=== PATIENT | female | born 1975 | race Caucasian/White ===

== ENCOUNTER → 2016-09-23 | Outpatient (CLI) | payer OTHER ==
[2016-03-14 15:41] VITALS: BP 136/73
[~2016-09-23] MED LIST: AMLO10TA2 PO; ASPI1TAB30 PO; CYCL10TA2 PO; FAMO20TA5 PO; HYDR-2868 PO; IBUP-1060 PO; NORT10CA PO; OXYC1TAB7 PO; PHEN37.53 PO
--- NOTE | 2016-09-23 09:26 | RAD ---
Indication six-month follow-up. Targeted ultrasound of the left breast was performed. The examination was targeted to the 2:00 position 8 and 13 cm from the nipple. Note is made of a previous diagnostic mammogram and left breast ultrasound 02/07/2016. At the 2:00 position of the breast, 8 cm from the nipple is an unchanged mass having benign imaging characteristics. No abnormality is seen on today's examination 13 cm from the nipple. Follow-up mammography in February of this year advised. IMPRESSION: Unchanged mass at the 2:00 position of the left breast, 8 cm from the nipple, having benign imaging characteristics on ultrasound. Follow-up mammography suggested in February of this year,.
== END | disposition home or self-care (01) ==
LOC: KCIC US 08:48
PROVIDERS: ATTEND Family Medicine
DX: R92.8 Other abnormal and inconclusive findings on diagnostic imaging of breast (principal)
CPT/HCPCS: 76641

== ENCOUNTER 2016-11-24 12:13 | Emergency (ER) | payer OTHER ==
[~2016-11-24] VITALS: Ht 165.1 cm; Wt 120.2 kg
--- NOTE | 2016-11-24 13:23 | RAD ---
THORACIC SPINE 3V Clinical Indication: fell Thursday, pain upper thoracic Comparison: None. Findings: The normal thoracic kyphosis is maintained. No listhesis. Vertebral body heights are maintained. No acute fracture identified. Mild multilevel degenerative changes of the visualized spine. Cholecystectomy. IMPRESSION: No acute fracture or malalignment.
--- NOTE | 2016-11-24 13:53 | RAD ---
CT of the head without contrast, 11/24/2016: History: Fall, head trauma, headache Comparison is made to a study from 03/14/2016. The ventricles are within normal limits in size. There is no shift of the midline structures. There is no evidence of acute intracranial hemorrhage or mass effect. There is an unchanged lucency in the right frontal deep white matter compatible with an old infarct. No abnormal extra-axial fluid collection or mass is seen. IMPRESSION: No acute intracranial abnormality is detected. PQRS Compliance Statement: One or more of the following individualized dose reduction techniques were utilized for this examination: 1. Automated exposure control 2. Adjustment of the mA and/or kV according to patient size 3. Use of iterative reconstruction technique
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
[2016-11-24 14:41] VITALS: BP 112/54
== END 2016-11-24 14:41 | disposition home or self-care (01) ==
LOC: ER 12:13
DX: S09.90XA Unspecified injury of head, initial encounter (principal); S20.229A Contusion of unspecified back wall of thorax, initial encounter; I10 Essential (primary) hypertension; G35 Multiple sclerosis; Z90.49 Acquired absence of other specified parts of digestive tract; Z98.51 Tubal ligation status; Z88.5 Allergy status to narcotic agent; Z88.8 Allergy status to other drugs, medicaments and biological substances; W18.39XA Other fall on same level, initial encounter; Y93.89 Activity, other specified; Y92.009 Unspecified place in unspecified non-institutional (private) residence as the place of occurrence of the external cause; Y99.8 Other external cause status
CPT/HCPCS: 70450; 72072; 99284-25

== ENCOUNTER 2017-06-06 11:47 | Emergency (ER) | payer OTHER ==
[2017-06-06 12:51] LABS: ADD MAN DIFF? NO
[2017-06-06 12:52] LABS: BASO % 1 % (0-3); EOS # 0.1 x10^3/uL (0.0-0.7); EOS % 2 % (0-3); HEMATOCRIT 36.6 % (36.0-47.0); HEMOGLOBIN 12.4 g/dL (12.0-15.5); LYMPH # 2.1 x10^3/uL (1.0-4.8); LYMPH % 42 % (24-48); MEAN CORPUSCULAR HEMOGLOBIN 30 pg (25-35); MEAN CORPUSCULAR HGB CONC 34 g/dL (31-37); MEAN CORPUSCULAR VOLUME 90 fL (79-100); MONO # 0.4 x10^3/uL (0.0-1.1); MONO % 9 % (0-9); NEUT # 2.4 x10^3uL (1.8-7.7); NEUT % 47 % (31-73); PLATELET COUNT 234 x10^3/uL (140-400); RED BLOOD COUNT 4.06 x10^6/uL (3.50-5.40); RED CELL DISTRIBUTION WIDTH 13.7 % (11.5-14.5); WHITE BLOOD COUNT 5.1 x10^3/uL (4.0-11.0)
[2017-06-06 13:04] LABS: PROTHROMBIN TIME PATIENT 12.4 SEC (11.7-14.0)
[2017-06-06 13:05] LABS: ANION GAP 8 (6-14); BLOOD UREA NITROGEN 7 mg/dL (7-20); BUN/CREATININE RATIO 12 (6-20); CALCIUM 9.6 mg/dL (8.5-10.1); CARBON DIOXIDE 28 mmol/L (21-32); CHLORIDE 98 mmol/L (98-107); CREATININE 0.6 mg/dL (0.6-1.0); GFR 110.2; GLUCOSE 86 mg/dL (70-99); POTASSIUM 3.6 mmol/L (3.5-5.1); SODIUM 134 mmol/L (136-145)
[2017-06-06] MEDS: ASPIRIN CHEWABLE 81 MG TABLET. PO ×2 (13:06)
[2017-06-06 13:09] LABS: D-DIMER 0.52 ug/mlFEU (0.00-0.50)
[2017-06-06 13:11] LABS: TROPONINI < 0.017 ng/mL (0.000-0.055)
[2017-06-06 13:18] LABS: ALBUMIN 3.2 g/dL (3.4-5.0); ALBUMIN/GLOBULIN RATIO 0.7 (1.0-1.7); ALK PHOS 69 U/L (46-116); ALT (SGPT) 41 U/L (14-59); AST (SGOT) 21 U/L (15-37); MAGNESIUM 1.6 mg/dL (1.8-2.4); TOTAL BILIRUBIN 0.2 mg/dL (0.2-1.0); TOTAL PROTEIN 7.8 g/dL (6.4-8.2)
[2017-06-06 13:20] LABS: NT-PRO BNP 71 pg/mL (0-124)
[2017-06-06 13:20] LABS: CKMB MASS < 0.5 ng/mL (0.0-3.6); CREATINE KINASE 97 U/L (26-192)
== END 2017-06-06 14:15 | disposition home or self-care (01) ==
LOC: ER 11:47
DX: R07.89 Other chest pain (principal); R06.02 Shortness of breath; I10 Essential (primary) hypertension; G35 Multiple sclerosis; F17.210 Nicotine dependence, cigarettes, uncomplicated; E66.9 Obesity, unspecified; Z90.49 Acquired absence of other specified parts of digestive tract; Z79.899 Other long term (current) drug therapy; Z98.51 Tubal ligation status; Z91.041 Radiographic dye allergy status; Z88.5 Allergy status to narcotic agent; Z68.34 Body mass index [BMI] 34.0-34.9, adult
CPT/HCPCS: 36415; 71045; 80053; 82553; 83735; 83880; 84484; 85025; 85379; 85610; 93005; 99285-25

== ENCOUNTER 2018-03-12 00:20 | Emergency (ER) | payer OTHER ==
[~2018-03-12] VITALS: Ht 165.1 cm; Wt 98.0 kg
[~2018-03-12 00:20] MED LIST changes: -AMLO10TA2 PO; +AMLO10TA6 PO; -ASPI1TAB30 PO; +ASPI1TAB31 PO
[2018-03-12 00:30] VITALS: BP 149/80
[2018-03-12] MEDS ORDERED: METH4TAB2 PO (01:00)
[2018-03-12] MEDS ORDERED: DIAZ5TAB PO (01:00)
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
[2018-03-12] MEDS ORDERED: diazePAM 5 MG TABLET PO ONE (01:30)
[2018-03-12] MEDS ORDERED: predniSONE 20 MG TABLET PO ONE (01:30)
== END 2018-03-12 01:20 | disposition home or self-care (01) ==
LOC: ER 00:20
DX: S13.8XXA Sprain of joints and ligaments of other parts of neck, initial encounter (principal); M54.5 Low back pain; R51 Headache; F41.9 Anxiety disorder, unspecified; I10 Essential (primary) hypertension; F32.9 Major depressive disorder, single episode, unspecified; Z90.49 Acquired absence of other specified parts of digestive tract; Z98.890 Other specified postprocedural states; Z88.5 Allergy status to narcotic agent; Z91.041 Radiographic dye allergy status; V43.52XA Car driver injured in collision with other type car in traffic accident, initial encounter; Y93.89 Activity, other specified; Y92.410 Unspecified street and highway as the place of occurrence of the external cause; Y99.8 Other external cause status
CPT/HCPCS: 99283; J7512; 99284

== ENCOUNTER → 2018-03-19 | Outpatient (CLI) | payer OTHER ==
[2018-03-12 00:30] VITALS: BP 149/80
[~2018-03-19] MED LIST changes: +DIAZ5TAB PO; +METH4TAB2 PO
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
== END | disposition home or self-care (01) ==
LOC: KCIC 08:16
PROVIDERS: ATTEND Nurse Practitioner Family
DX: M17.11 Unilateral primary osteoarthritis, right knee (principal); M11.261 Other chondrocalcinosis, right knee; M76.891 Other specified enthesopathies of right lower limb, excluding foot; D16.21 Benign neoplasm of long bones of right lower limb; M77.31 Calcaneal spur, right foot; M54.5 Low back pain
CPT/HCPCS: 72050; 72100; 73562; 73630

== ENCOUNTER → 2018-04-09 | Outpatient (CLI) | payer OTHER ==
[2018-03-12 00:30] VITALS: BP 149/80
--- NOTE | 2018-04-10 09:04 | KCIC ---
Lumbar spine AP, lateral and oblique x-rays 5 views HISTORY: Sacroiliac joint dysfunction and low back pain. COMPARISON: Lumbar spine x-rays March 19, 2018. FINDINGS: 5 nonrib-bearing lumbar type vertebra. No pars interarticularis defect. Lumbar vertebral body height and alignment intact. Intervertebral disc space height preserved. No fracture evident. IMPRESSION: No acute osseous injury. Electronically signed by: Shine Cuadra MD (04/10/2018 9:00 AM) [facility]
== END | disposition home or self-care (01) ==
LOC: KCIC 09:26
PROVIDERS: ATTEND Family Medicine
DX: M53.3 Sacrococcygeal disorders, not elsewhere classified (principal)
CPT/HCPCS: 72110

== ENCOUNTER 2018-04-25 10:06 | Emergency (ER) | payer OTHER ==
[~2018-04-25] VITALS: Ht 167.6 cm; Wt 120.2 kg
[2018-04-25 10:19] VITALS: BP 147/93
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
[2018-04-25] MEDS ORDERED: DEXAMETHASONE SOD PHOS 20 MG/5 ML VIAL. PO ONE (10:45)
[2018-04-25] MEDS ORDERED: PRED50TA PO (10:57)
[2018-04-25] MEDS ORDERED: HYDR25SU18 RC (10:57)
[2018-04-25] MEDS ORDERED: ORPH100T PO (10:57)
== END 2018-04-25 11:02 | disposition home or self-care (01) ==
LOC: ER 10:06
DX: M54.42 Lumbago with sciatica, left side (principal); K64.8 Other hemorrhoids; Z90.49 Acquired absence of other specified parts of digestive tract; Z98.51 Tubal ligation status; V89.2XXA Person injured in unspecified motor-vehicle accident, traffic, initial encounter; Y93.89 Activity, other specified; Y92.89 Other specified places as the place of occurrence of the external cause; Y99.8 Other external cause status
CPT/HCPCS: 99283; J1100

== ENCOUNTER 2020-02-10 19:05 | Emergency (ER) | payer OTHER ==
[~2020-02-10] VITALS: Ht 165.1 cm; Wt 126.0 kg
[~2020-02-10 19:05] MED LIST changes: +AMLO-187 PO; -AMLO10TA6 PO; +HYDR25SU18 RC; +ORPH100T PO; +PRED50TA PO
[2020-02-10 19:41] LABS: BILIRUBIN,URINE NEGATIVE (NEG); CLARITY,URINE CLEAR; COLOR,URINE YELLOW; NITRITE,URINE NEGATIVE (NEG); PROTEIN,URINE NEGATIVE (NEG-TRACE)
[2020-02-10 19:46] LABS: BACTERIA,URINE MODERATE /HPF (0-FEW)
--- NOTE | 2020-02-10 19:47 | PHYS DOC ---
Past Medical History Past Medical History: Hypertension Additional Past Medical Histor: MS Past Surgical History: Cholecystectomy, Tubal ligation Smoking Status: Current Some Day Smoker Alcohol Use: None Drug Use: Marijuana General Adult EDM: Chief Complaint: ABNORMAL LABS HPI: HPI: Fanny Nixon is a 44-year-old female with past medical history of multiple sclerosis who presents to the emergency department after her neurologist informed her that she had elevated sodium (175) and another "lab value" that put her at risk for seizures. She had these labs drawn earlier today when she had her 6-week infusion of Tysabri (natalizumab), medication which she has been rec eiving for some time now. She also states that she recently completed a regimen of steroids that was higher than her past doses. She currently complains of weakness and a mild headache that is described as a pressure in her frontal region. She denies all other complaints including fever, chills, chest pain, shortness of breath, abdominal pain, nausea, vomiting, or bowel/urinary complaints. Her last menstrual period ended 2 days ago. Review of Systems: Review of Systems: Constitutional: Denies fever or chills Eyes: Denies redness or eye pain HENT: Denies nasal congestion or sore throat Respiratory: Denies cough or shortness of breath Cardiovascular: Denies chest pain or palpitations GI: Denies abdominal pain, nausea, or vomiting : Denies dysuria or hematuria Musculoskeletal: Denies back pain or joint pain Integument: Denies rash or skin lesions Neurologic: Denies focal weakness or sensory changes; reports chronic headache Complete systems were reviewed and found to be within normal limits, except as documented in this note. Allergies: Allergies: Allergies Coded Allergies Type Severity Reaction Last Updated Verified Gadolinium-Containing Contrast Medi Allergy Intermediate 03/08/16 Yes hydrocodone Allergy Intermediate Itching 03/08/16 Yes tramadol Allergy Intermediate Itching 03/08/16 Yes Physical Exam: PE: Constitutional: Well developed, well nourished, no acute distress, non-toxic appearance HENT: Normocephalic, atraumatic Eyes: PERRL, EOMI, conjunctiva normal, no discharge Neck: Normal range of motion, no tenderness, supple Cardiac: Regular rate rhythm, no murmur Lungs & Thorax: No respiratory distress, equal chest rise and fall, clear to auscultation bilaterally Abdomen: Soft, no tenderness Skin: Warm, dry, no erythema, no rash Back: No tenderness, no CVA tenderness Extremities: No tenderness, ROM intact, no edema Neurologic: Alert and oriented X 3, normal motor function, normal sensory function, no focal deficits noted, CN II through XII intact, no arm drift, normal finger-nose Psychologic: Affect normal, judgment normal Current Patient Data: Labs: Laboratory Tests Test 02/10/20 19:40 POC Urine HCG, Qualitative Hcg negative (Negative) Course & Med Decision Making: Course & Med Decision Making Patient presented with outside laboratory draw hypernatremia as presented above. Patient's physical exam is benign and she is without significant complaint at this time. Blood work was largely unremarkable, with normal sodium levels, slight hypokalemia, and slightly elevated white blood cells. Given her recent course of steroids, this is likely a benign finding. Hypokalemia addressed. Urinalysis appears with contamination. Will hold antibiotic therapy until UCX. Patient is discharged with reassurance that her initial lab finding of hyponatremia was likely laboratory error. She will be given instructions about raising her potassium levels utilizing bananas, avocados, or figs. Dragon Disclaimer: Dragon Disclaimer: This electronic medical record was generated, in whole or in part, using a voice recognition dictation system. Departure Departure Impression: Primary Impression: Feared condition not demonstrated Additional Impression: Hypokalemia Referrals: DYLAN POSEY MD (PCP) Patient Instructions: Hypokalemia, Potassium Content of Foods Additional Instructions: The abnormal sodium level you were sent to the Emergency Department for appears to be normal at this time. It is likely a laboratory error from the prior site. ARMAAN AGUIRA DO Feb 10, 2020 19:47
[2020-02-10 19:51] LABS: BASO # 0.1 x10^3/uL (0.0-0.2); BASO % 0 % (0-3); EOS % 0 % (0-3); HEMATOCRIT 30.8 % (36.0-47.0); LYMPH # 3.7 x10^3/uL (1.0-4.8); LYMPH % 23 % (24-48); MEAN CORPUSCULAR HEMOGLOBIN 26 pg (25-35); MEAN CORPUSCULAR HGB CONC 32 g/dL (31-37); MEAN CORPUSCULAR VOLUME 81 fL (79-100); MONO # 1.4 x10^3/uL (0.0-1.1); MONO % 9 % (0-9); NEUT # 11.1 x10^3/uL (1.8-7.7); NEUT % 68 % (31-73); PLATELET COUNT 321 x10^3/uL (140-400); RED BLOOD COUNT 3.79 x10^6/uL (3.50-5.40); RED CELL DISTRIBUTION WIDTH 17.4 % (11.5-14.5); WHITE BLOOD COUNT 16.3 x10^3/uL (4.0-11.0)
[2020-02-10 20:11] LABS: CALCIUM 9.1 mg/dL (8.5-10.1); GFR 60.5; POTASSIUM 3.1 mmol/L (3.5-5.1)
[2020-02-10 20:18] LABS: ALBUMIN 3.6 g/dL (3.4-5.0); MAGNESIUM 2.1 mg/dL (1.8-2.4); TOTAL BILIRUBIN 0.1 mg/dL (0.2-1.0); TOTAL PROTEIN 7.2 g/dL (6.4-8.2)
[2020-02-10] MEDS ORDERED: POTASSIUM CHLORIDE 20 MEQ TABLET.ER. PO ONE (20:45)
[2020-02-10 20:56] VITALS: BP 140/69
== END 2020-02-10 21:02 | disposition home or self-care (01) ==
LOC: ER 19:05
DX: E87.6 Hypokalemia (principal); I10 Essential (primary) hypertension; F12.90 Cannabis use, unspecified, uncomplicated; R51.9 Headache, unspecified; Z90.49 Acquired absence of other specified parts of digestive tract; Z98.51 Tubal ligation status; Z87.891 Personal history of nicotine dependence
CPT/HCPCS: 36415; 80053; 81001; 81025; 83735; 85025; 87086; 99283

== ENCOUNTER 2020-03-12 10:46 | Emergency (ER) | payer OTHER ==
[~2020-03-12] VITALS: Ht 167.6 cm; Wt 124.7 kg
--- NOTE | 2020-03-12 12:23 | RAD ---
Vascular Chest AP EXAM: CHEST AP ONLY INDICATION: Reason: cough / Spl. Instructions: / History: . TECHNIQUE: Single view COMPARISON: None FINDINGS: The heart size is normal. The great vessels appear unremarkable. There is no hilar or mediastinal mass. The lungs are clear. There is no pleural effusion or pneumothorax. There are no significant osseous abnormalities. IMPRESSION: No active cardiopulmonary disease. Electronically signed by: Robbi Pereira MD (03/12/2020 12:20 PM) [id number]
--- NOTE | 2020-03-12 13:07 | PHYS DOC ---
Past Medical History Past Medical History: Depression, Diabetes-Type II, Hypertension, Other Additional Past Medical Histor: MS (RON MORALES APRN) Past Surgical History: Cholecystectomy, , Tubal ligation (RON MORALES APRN) Smoking Status: Current Some Day Smoker Alcohol Use: None Drug Use: Marijuana (RON MORALES APRN) General Adult EDM: Chief Complaint: ANXIETY/PANIC ATTACK HPI: HPI: Patient is a 44 year old female with history of hypertension, diabetes type 2, who presents to the ED today requesting a COVID-19 test. Patient states she has been around people who were tested for COVID 19 and somewhat quarantined but she does not know whether they were positive or not. Patient states she has had a cough. She states she does not think she has had shortness of breath patient nor fever. (RON MORALES APRN) Review of Systems: Review of Systems: Constitutional: Denies fever or chills. [] Eyes: Denies change in visual acuity. [] HENT: Reports mucus in her throat, denies sore throat. [] Respiratory: Reports cough, request for COVID-19 testing, denies shortness of breath. [] Cardiovascular: Denies chest pain or edema. [] GI: Denies abdominal pain, nausea, vomiting, bloody stools or diarrhea. [] : Denies dysuria. [] Musculoskeletal: Denies back pain or joint pain. [] Integument: Denies rash. [] Neurologic: Denies headache, focal weakness or sensory changes. [] Psychiatric: Denies depression or anxiety. [] (RON MOARLES APRN) Heart Score: Risk Factors: Risk Factors: DM, Current or recent (<one month) smoker, HTN, HLP, family history of CAD, obesity. Risk Scores: Score 0 - 3: 2.5% MACE over next 6 weeks - Discharge Home Score 4 - 6: 20.3% MACE over next 6 weeks - Admit for Clinical Observation Score 7 - 10: 72.7% MACE over next 6 weeks - Early Invasive Strategies (RON MORALES APRN) Allergies: Allergies: Allergies Coded Allergies Type Severity Reaction Last Updated Verified Gadolinium-Containing Contrast Medi Allergy Intermediate 03/08/16 Yes hydrocodone Allergy Intermediate Itching 03/08/16 Yes tramadol Allergy Intermediate Itching 03/08/16 Yes (RON MORALES APRN) Physical Exam: PE: Constitutional: Well developed, well nourished, no acute distress, non-toxic appearance. [] HENT: Normocephalic, atraumatic, bilateral external ears normal, oropharynx moist, no oral exudates, nose normal. [] Eyes: PERRLA, EOMI, conjunctiva normal, no discharge. [] Neck: Normal range of motion, no tenderness, supple, no stridor. [] Cardiovascular:Heart rate regular rhythm, no murmur [] Lungs & Thorax: Bilateral breath sounds clear to auscultation [] Abdomen: Bowel sounds normal, soft, no tenderness, no masses, no pulsatile masses. [] Skin: Warm, dry, no erythema, no rash. [] Back: No tenderness, no CVA tenderness. [] Extremities: No tenderness, no cyanosis, no clubbing, ROM intact, no edema. [] Neurologic: Alert and oriented X 3, normal motor function, normal sensory function, no focal deficits noted. [] Psychologic: Affect normal, judgement normal, mood normal. [] (RON MORALES APRN) Current Patient Data: Vital Signs: Vital Signs Date Time Temp Pulse Resp B/P (MAP) Pulse Ox O2 Delivery O2 Flow Rate FiO2 03/12/20 10:53 98.0 75 16 154/87 (109) 98 Room Air 98.0 (RON MORALES APRN) EKG: EKG: [] (RON MORALES APRN) Radiology/Procedures: Radiology/Procedures: []PROCEDURE: CHEST AP ONLY Vascular Chest AP EXAM: CHEST AP ONLY INDICATION: Reason: cough / Spl. Instructions: / History: . TECHNIQUE: Single view COMPARISON: None FINDINGS: The heart size is normal. The great vessels appear unremarkable. There is no hilar or mediastinal mass. The lungs are clear. There is no pleural effusion or pneumothorax. There are no significant osseous abnormalities. IMPRESSION: No active cardiopulmonary disease. Electronically signed by: Sheela Pereira MD (03/12/2020 12:20 PM) [id number] DICTATED and SIGNED BY: SHEELA PEREIRA MD DATE: 03/12/20 1220 (RON MORALES APRN) Course & Med Decision Making: Course & Med Decision Making Pertinent Labs and Imaging studies reviewed. (See chart for details) This is a 44-year-old female patient presenting to the ED today requesting COVID-19 test. She states she has been around people who were tested but she d oes not know if they were positive or negative but they had to quarantine themselves. She has had a cough. Chest x-ray is negative. COVID-19 results will be called to her in 3 days. Instructed to quarantine herself. (RON MORALES APRN) Dragon Disclaimer: Dragon Disclaimer: This electronic medical record was generated, in whole or in part, using a voice recognition dictation system. (RON MORALES APRN) Departure Departure Impression: Primary Impression: Cough Additional Impression: Person under investigation for COVID-19 Disposition: 01 DC HOME SELF CARE/HOMELESS Condition: STABLE Referrals: JERONIMO FREEMAN APRN (PCP) Follow-up in 1 to 2 weeks Patient Instructions: Cough, Adult, [id number] Additional Instructions: You were tested for COVID-19, we will call you with results in a couple days. Quarantine yourself, maintain good hygiene, wear your mask. Push fluids. Come back to the ED at any point symptoms worsen. Attending Signature Attending Signature I have reviewed the PA/COMPUTER ENGINEERING TECHNOLOGIST's note and plan of care. I was available for consultation as needed during the patient's visit in the emergency department. I agree with the clinical impression, plan, and disposition. (ARMAAN AGUIAR DO) RON MORALES APRN Mar 12, 2020 13:07 ARMAAN AGUIAR DO Mar 12, 2020 19:48
[2020-03-12 13:21] VITALS: BP 142/70
== END 2020-03-12 13:21 | disposition home or self-care (01) ==
LOC: ER 10:46
DX: R05 Cough (principal); Z20.828 Contact with and (suspected) exposure to other viral communicable diseases; I10 Essential (primary) hypertension; E11.9 Type 2 diabetes mellitus without complications; F17.200 Nicotine dependence, unspecified, uncomplicated; Z91.041 Radiographic dye allergy status; Z88.5 Allergy status to narcotic agent; Z88.6 Allergy status to analgesic agent
CPT/HCPCS: 71045; 99284; C9803; U0003

== ENCOUNTER → 2020-03-22 | Outpatient (CLI) | payer OTHER ==
[2020-03-12 13:21] VITALS: BP 142/70
--- NOTE | 2020-03-22 16:33 | KCIC ---
Lumbar spine AP, lateral and oblique x-rays 5 views HISTORY: Lumbosacral radiculopathy. FINDINGS: No spondylolysis defect on the oblique x-rays. Lumbar vertebral body height and alignment intact. No fracture. There is mild posterior disc space narrowing at L5-S1 with lesser disc narrowing posteriorly at L1-L2 through L3-L4. Mild right L5-S1 facet spurring. IMPRESSION: No acute osseous injury. Mild changes of disc disease with posterior disc space narrowing of the lumbar spine as described above. Electronically signed by: Shine Cuadra MD (03/22/2020 4:30 PM) [facility]
== END ==
LOC: KCIC 13:59
PROVIDERS: ATTEND Nurse Practitioner Family
DX: M48.07 Spinal stenosis, lumbosacral region (principal); M54.17 Radiculopathy, lumbosacral region; M46.07 Spinal enthesopathy, lumbosacral region
CPT/HCPCS: 72110

== ENCOUNTER 2020-08-19 20:20 | Emergency (ER) | payer OTHER ==
[~2020-08-19] VITALS: Ht 167.6 cm; Wt 102.3 kg
[2020-08-19 20:25] VITALS: BP 141/99
[2020-08-19] MEDS ORDERED: IV NORMAL SALINE 1000ML BAG 1,000 ML IV SCH (20:45)
[2020-08-19 20:53] LABS: BASO # 0.1 x10^3/uL (0.0-0.2); BASO % 1 % (0-3); EOS # 0.1 x10^3/uL (0.0-0.7); EOS % 1 % (0-3); HEMATOCRIT 31.7 % (36.0-47.0); HEMOGLOBIN 10.5 g/dL (12.0-15.5); LYMPH % 31 % (24-48); MEAN CORPUSCULAR HEMOGLOBIN 27 pg (25-35); MEAN CORPUSCULAR HGB CONC 33 g/dL (31-37); MEAN CORPUSCULAR VOLUME 82 fL (79-100); MONO # 0.4 x10^3/uL (0.0-1.1); MONO % 6 % (0-9); NEUT # 3.9 x10^3/uL (1.8-7.7); NEUT % 61 % (31-73); PLATELET COUNT 282 x10^3/uL (140-400); RED BLOOD COUNT 3.88 x10^6/uL (3.50-5.40); RED CELL DISTRIBUTION WIDTH 17.7 % (11.5-14.5); WHITE BLOOD COUNT 6.4 x10^3/uL (4.0-11.0)
[2020-08-19 21:04] LABS: CALCIUM 8.9 mg/dL (8.5-10.1); CREATININE 0.8 mg/dL (0.6-1.0); GFR 77.9; POTASSIUM 3.3 mmol/L (3.5-5.1)
[2020-08-19 21:12] LABS: ALBUMIN 3.5 g/dL (3.4-5.0); ALBUMIN/GLOBULIN RATIO 0.9 (1.0-1.7); MAGNESIUM 1.9 mg/dL (1.8-2.4); TOTAL BILIRUBIN 0.2 mg/dL (0.2-1.0); TOTAL PROTEIN 7.5 g/dL (6.4-8.2)
--- NOTE | 2020-08-19 21:49 | EKG ---
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
--- NOTE | 2020-08-19 21:49 | RAD ---
Exam: Chest one view INDICATION: Chest pain TECHNIQUE: Frontal view of the chest Comparisons: 03/12/2020 FINDINGS: The cardiomediastinal silhouette and pulmonary vessels are within normal limits. The lung and pleural spaces are clear. IMPRESSION: No acute cardiopulmonary process. Electronically signed by: Christin Castillo MD (08/19/2020 9:47 PM) AB
--- NOTE | 2020-08-19 21:49 | EKG ---
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
--- NOTE | 2020-08-19 21:58 | PHYS DOC ---
Past Medical History Past Medical History: Hypertension, Other Additional Past Medical Histor: MS Past Surgical History: Smoking Status: Never Smoker Alcohol Use: None Drug Use: Marijuana Adult General Chief Complaint Chief Complaint: CHEST PAIN HPI HPI Patient is a 45 year old male with possible history of multiple sclerosis now presents emergency department complaining new onset of chest pain. Patient states that she is for started approximately 1 week ago when she started having new onset of right anterior chest pain that primarily occurred when she moves her neck. Patient states that then spontaneously resolved but earlier today at approximately 4 hours prior to arrival she had recurrence of symptoms. Patient states burning sensation over the right anterior chest which radiates into the right shoulder and right neck primarily when she lifts her arm or moves her neck. Denies any associated nausea, vomiting, dizziness or lightheadedness. No shortness of breath. Denies any history of similar symptoms Review of Systems Review of Systems Constitutional: Denies fever or chills [] Eyes: Denies change in visual acuity, redness, or eye pain [] HENT: Denies nasal congestion or sore throat [] Respiratory: Denies cough or shortness of breath [] Cardiovascular: No additional information not addressed in HPI [] GI: Denies abdominal pain, nausea, vomiting, bloody stools or diarrhea [] : Denies dysuria or hematuria [] Musculoskeletal: Denies back pain or joint pain [] Integument: Denies rash or skin lesions [] Neurologic: Denies headache, focal weakness or sensory changes [] Endocrine: Denies polyuria or polydipsia [] All other systems were reviewed and found to be within normal limits, except as documented in this note. Current Medications Current Medications Current Medications Medications (Trade) Dose Ordered Sig/Rufina Start Time Stop Time Status Last Admin Dose Admin Sodium Chloride 1,000 ml @ 1,000 mls/hr Q1H 08/19/20 20:45 08/19/20 21:44 DC 08/19/20 20:45 1,000 MLS/HR Allergies Allergies Allergies Coded Allergies Type Severity Reaction Last Updated Verified Gadolinium-Containing Contrast Medi Allergy Intermediate 03/08/16 Yes hydrocodone Allergy Intermediate Itching 03/08/16 Yes tramadol Allergy Intermediate Itching 03/08/16 Yes Physical Exam Physical Exam Constitutional: Well developed, well nourished, no acute distress, non-toxic appearance. [] HENT: Normocephalic, atraumatic, bilateral external ears normal, oropharynx moist, no oral exudates, nose normal. [] Eyes: PERRLA, EOMI, conjunctiva normal, no discharge. [] Neck: Normal range of motion, no tenderness, supple, no stridor. [] Cardiovascular:Heart rate regular rhythm, no murmur [] Lungs & Thorax: Bilateral breath sounds clear to auscultation [] Abdomen: Bowel sounds normal, soft, no tenderness, no masses, no pulsatile masses. [] Skin: Warm, dry, no erythema, no rash. [] Back: No tenderness, no CVA tenderness. [] Extremities: No tenderness, no cyanosis, no clubbing, ROM intact, no edema. [] Neurologic: Alert and oriented X 3, normal motor function, normal sensory funct ion, no focal deficits noted. [] Psychologic: Affect normal, judgement normal, mood normal. [] Current Patient Data Vital Signs Vital Signs Date Time Temp Pulse Resp B/P (MAP) Pulse Ox O2 Delivery O2 Flow Rate FiO2 08/19/20 20:25 98.9 81 11 141/99 (113) 99 Room Air 98.9 Lab Values Laboratory Tests Test 08/19/20 20:35 White Blood Count 6.4 x10^3/uL (4.0-11.0) Red Blood Count 3.88 x10^6/uL (3.50-5.40) Hemoglobin 10.5 g/dL (12.0-15.5) L Hematocrit 31.7 % (36.0-47.0) L Mean Corpuscular Volume 82 fL (79-100) Mean Corpuscular Hemoglobin 27 pg (25-35) Mean Corpuscular Hemoglobin Concent 33 g/dL (31-37) Red Cell Distribution Width 17.7 % (11.5-14.5) H Platelet Count 282 x10^3/uL (140-400) Neutrophils (%) (Auto) 61 % (31-73) Lymphocytes (%) (Auto) 31 % (24-48) Monocytes (%) (Auto) 6 % (0-9) Eosinophils (%) (Auto) 1 % (0-3) Basophils (%) (Auto) 1 % (0-3) Neutrophils # (Auto) 3.9 x10^3/uL (1.8-7.7) Lymphocytes # (Auto) 2.0 x10^3/uL (1.0-4.8) Monocytes # (Auto) 0.4 x10^3/uL (0.0-1.1) Eosinophils # (Auto) 0.1 x10^3/uL (0.0-0.7) Basophils # (Auto) 0.1 x10^3/uL (0.0-0.2) Sodium Level 143 mmol/L (136-145) Potassium Level 3.3 mmol/L (3.5-5.1) L Chloride Level 104 mmol/L (98-107) Carbon Dioxide Level 28 mmol/L (21-32) Anion Gap 11 (6-14) Blood Urea Nitrogen 12 mg/dL (7-20) Creatinine 0.8 mg/dL (0.6-1.0) Estimated GFR (Cockcroft-Gault) 77.9 BUN/Creatinine Ratio 15 (6-20) Glucose Level 126 mg/dL (70-99) H Calcium Level 8.9 mg/dL (8.5-10.1) Magnesium Level 1.9 mg/dL (1.8-2.4) Total Bilirubin 0.2 mg/dL (0.2-1.0) Aspartate Amino Transferase (AST) 11 U/L (15-37) L Alanine Aminotransferase (ALT) 23 U/L (14-59) Alkaline Phosphatase 81 U/L (46-116) Troponin I Quantitative < 0.017 ng/mL (0.000-0.055) Total Protein 7.5 g/dL (6.4-8.2) Albumin 3.5 g/dL (3.4-5.0) Albumin/Globulin Ratio 0.9 (1.0-1.7) L Lipase 67 U/L (73-393) L Laboratory Tests 08/19/20 20:35 Laboratory Tests 08/19/20 20:35 EKG EKG [] Radiology/Procedures Radiology/Procedures [] Course & Med Decision Making Course & Med Decision Making Pertinent Labs and Imaging studies reviewed. (See chart for details) [] Dragon Disclaimer Dragon Disclaimer This electronic medical record was generated, in whole or in part, using a voice recognition dictation system. Departure Departure Impression: Primary Impression: Chest wall muscle strain Disposition: HOME / SELF CARE / HOMELESS Condition: GOOD Referrals: JERONIMO FREEMAN APRN (PCP) Patient Instructions: Chest Pain (Nonspecific) Additional Instructions: EMERGENCY DEPARTMENT GENERAL DISCHARGE INSTRUCTIONS Thank you for coming to [facility] Emergency Department (ED) today and trusting us with you care. We trust that you had a positive experience in our Emergency Department. If you wish to speak to the department management, you may call the Director at [phone]. YOUR FOLLOW UP INSTRUCTIONS ARE FOLLOWS: 1. Do you have a private Doctor? If you do not have a private doctor, please ask for a resource list of physicians or clinics that may be able to assist you with follow up care. 2. The Emergency Physicain has interpreted your x-rays. The X-Ray specialist will also review them. If there is a change in the findings, you will be notified in 48 hours when at all possible. 3. A lab test or culture has been done, your results will be reviewed and you will be notified if you need a change in treatment. ADDITIONAL INSTRUCTIONS AND INFORMATION: 1. Your care today has been supervised by a physician who is specially trained in emergency care. Many problems require more than one evaluation for a complete diagnosis and treatment. We recommend that you schedule your follow up appointment as recommended to ensure complete treatment of you illness or injury. If you are unable to obtain follow up care and continue to have a problem, or if your condition worsens, we recommend that you return to the ED. 2. We are not able to safely determine your condition over the phone nor are we able to give sound medical advice over the phone. For these safety reasons, if you call for medical advice we will ask you to come to the ED for further evaluation. 3. If you have any questions regarding these discharge instructions please call the ED at [phone]. SAFETY INFORMATION: In the interest of safety, wellness, and injury prevention; we encourage you to wear your sealbelt, if you smoke; quite smoking, and we encourage family to use a protective helmet for bicycling and other sporting events that present an increased risk for head injury. IF YOUR SYMPTOMS WORSEN OR NEW SYMPTOMS DEVELOP, OR YOU HAVE CONCERNS ABOUT YOUR CONDITION; OR IF YOUR CONDITION WORSENS WHILE YOU ARE WAITING FOR YOUR FOLLOW UP AP POINTMENT; EITHER CONTACT YOUR PRIMARY CARE DOCTOR, THE PHYSICIAN WHOSE NAME AND NUMBER YOU WERE GIVEN, OR RETURN TO THE ED IMMEDIATELY. EUSEBIO IZAGUIRRE MD Aug 19, 2020 21:58
== END 2020-08-19 22:10 | disposition home or self-care (01) ==
LOC: ER 20:20
DX: S29.011A Strain of muscle and tendon of front wall of thorax, initial encounter (principal); R20.8 Other disturbances of skin sensation; I10 Essential (primary) hypertension; F12.90 Cannabis use, unspecified, uncomplicated; Z98.890 Other specified postprocedural states; Z88.5 Allergy status to narcotic agent; Z88.8 Allergy status to other drugs, medicaments and biological substances; X58.XXXA Exposure to other specified factors, initial encounter; Y93.89 Activity, other specified; Y92.89 Other specified places as the place of occurrence of the external cause; Y99.8 Other external cause status
CPT/HCPCS: 36415; 71045; 80053; 83690; 83735; 84484; 85025; 93005; 96360; 99285; J7030

== ENCOUNTER → 2021-08-15 | Outpatient (CLI) | payer MEDICAID ==
[~2021-08-15] MED LIST changes: +CYCL10TA19 PO; -CYCL10TA2 PO
--- NOTE | 2021-08-15 16:35 | KCIC ---
EXAM: US EXT NON VASC LEFT 08/15/2021 2:35 PM CLINICAL INDICATION: Left buttock nodule COMPARISON: None TECHNIQUE: Grayscale and color Doppler ultrasound of the left gluteal region in the area concern FINDINGS: There is a possible 2.7 x 2.1 x 1.2 cm isoechoic subcutaneous mass in the area of concern with no internal vascularity. This is likely a lipoma. IMPRESSION: Probable 2.7 cm subcutaneous lipoma in the area of concern. Electronically signed by: Dian Emerson MD (08/15/2021 4:32 PM) [id number]
== END ==
LOC: KCIC US 14:22
PROVIDERS: ATTEND Nurse Practitioner Family
DX: L72.9 Follicular cyst of the skin and subcutaneous tissue, unspecified (principal)
CPT/HCPCS: 76881